=== PATIENT | female | born 1955 | race Caucasian/White ===

== ENCOUNTER → 2019-02-02 | Outpatient (CLI) | payer BC ==
--- NOTE | 2019-02-02 11:20 | CT ---
INDICATION: Cough, shortness of breath, acute bronchitis, and pneumonia. CT CHEST WITHOUT CONTRAST: Spiral 2.5 mm axial sections were obtained through the chest without IV contrast with sagittal and coronal reconstructions, , and compared with chest x-ray from [facility], date 01/29/19. Total exam DLP = 850.27 mGy-cm. There is some basilar pleural thickening bilaterally - posteriorly, likely fibrotic in nature. There is no calcification associated with it. The possibility of early asbestosis would be a consideration - correlate clinically. Some minimal heavy markings are noted in the right lower lobe, left lower lobe, and lingula, as well as the middle lobe at the diaphragm. These are most likely on the basis of minimal fibrosis. Bronchial wall cuffing was noted on the recent chest x-ray from the clinic at the lower lung aleman - lung bases. This could represent active peribronchial disease. There may be some minimal bronchiectasis at the lung bases, which would be compatible with inflammatory process on a chronic basis. This should be correlated clinically. A definite active infiltrate or effusion was not identified. No nodular masses were seen in the lungs or pleural spaces. No mediastinal mass was seen. Mediastinal lymphadenopathy is very minimal and nonspecific. The heart is normal in size. No pericardial effusion was seen. There are some calcifications at the mitral and tricuspid valves. The upper abdomen included on the study showed evidence of cholecystectomy and suggestion of minimal renal cortical scarring, perhaps more prominent on the left. Minimal aortic calcification is noted in the abdomen. Minimal calcification is noted in the descending thoracic aorta. IMPRESSION: 1. No definite acute process, although there does appear to be some chronic inflammatory change, possible acute peribronchial disease suggested by a previous chest x-ray versus fibrosis. 2. Mild ASD. 3. Post cholecystectomy. 4. 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 Report was called to Galina Fowler NP at 1059 hours on 02/02/19. [facility]
== END ==
LOC: FB.DI 10:18
PROVIDERS: ATTEND Nurse Practitioner Family
DX: J18.9 Pneumonia, unspecified organism (principal); J20.9 Acute bronchitis, unspecified; Q21.1 Atrial septal defect; N28.89 Other specified disorders of kidney and ureter; Z90.49 Acquired absence of other specified parts of digestive tract
CPT/HCPCS: 71250

== ENCOUNTER 2024-09-28 11:07 | Emergency (ER) | payer BC, MEDICARE ==
[2024-09-28 12:01] LABS: BASOPHILS ABSOLUTE AUTO 0.0 x10-3/uL (0.0-0.1); BASOPHILS PERCENT AUTO 0.5 % (0.2-1.5); EOSINOPHILS ABSOLUTE AUTO 0.2 x10-3/uL (0.0-0.8); EOSINOPHILS PERCENT AUTO 2.1 % (0.6-8.1); LYMPHOCYTES ABSOLUTE AUTO 1.2 x10-3/uL (1.0-4.4); LYMPHOCYTES PERCENT AUTO 15.3 % (18.4-52.1); MEAN PLATELET VOLUME 8.1 fL (7.1-12.4); MONOCYTES ABSOLUTE AUTO 0.6 x10-3/uL (0.3-1.0); MONOCYTES PERCENT AUTO 7.5 % (4.4-15.7); NEUTROPHILS ABSOLUTE AUTO 5.8 x10-3/uL (1.5-6.3); NEUTROPHILS PERCENT AUTO 74.5 % (30.8-76.2); PLATELET COUNT,PLT 208 x10(3)uL (151-488); RED BLOOD CELL COUNT 4.11 x10(6)uL (3.60-5.20); RED CELL DISTRIBUTION WIDTH 16.0 % (12.3-16.5); WHITE BLOOD CELL COUNT,WBC 7.7 x10-3/uL (3.0-10.3)
[2024-09-28 12:04] LABS: BLOOD UREA NITROGEN,BUN 19 mg/dL (7-18); CARBON DIOXIDE,CO2 31 mmol/L (21-32); CHLORIDE,CL 103 mmol/L (100-110); CREATININE 0.9 mg/dL (0.55-1.02); ESTIMATED GFR 69 mL/min (>60); GLUCOSE RANDOM 166 mg/dL (80-116); POTASSIUM,K 5.0 mmol/L (3.5-5.3); SODIUM,NA 141 mmol/L (135-145)
[2024-09-28 12:10] LABS: A/G RATIO 0.9; ALANINE AMINOTRANSFERASE,ALT 42 U/L (12-36); ASPARTATE AMNIOTRANSFERASE,AST 25 IU/L (5-25); BILIRUBIN TOTAL 0.4 mg/dL (0.1-1.3); PROTEIN TOTAL,TP 7.0 g/dL (6.0-8.0)
[2024-09-28 12:18] LABS: GLUCOSE,URINE NORMAL (NORMAL); OCCULT BLOOD,URINE NEGATIVE (NEGATIVE)
[2024-09-28 12:19] LABS: APPEARANCE,URINE CLEAR (CLEAR)
== END 2024-09-28 12:41 | disposition home or self-care (01) ==
LOC: FB.ED 11:07
DX: R53.1 Weakness (principal); E83.42 Hypomagnesemia; I10 Essential (primary) hypertension; E78.00 Pure hypercholesterolemia, unspecified; M19.90 Unspecified osteoarthritis, unspecified site; E03.9 Hypothyroidism, unspecified; E11.9 Type 2 diabetes mellitus without complications; Z90.49 Acquired absence of other specified parts of digestive tract; Z90.710 Acquired absence of both cervix and uterus; Z88.8 Allergy status to other drugs, medicaments and biological substances; Z79.82 Long term (current) use of aspirin; Z79.890 Hormone replacement therapy; Z79.84 Long term (current) use of oral hypoglycemic drugs; Z79.899 Other long term (current) drug therapy
CPT/HCPCS: 36415; 80053; 81003; 83735; 84484; 85025; 93005; 93010; 99284; 99285